=== PATIENT | male | born 1980 | race Caucasian/White ===

== ENCOUNTER → 2019-08-12 | Outpatient (CLI) | payer OTHER ==
[~2019-08-12] MED LIST: AUGMENTIN 875875 MG PO; NORCO 5-325 TA1 EACH PO; PREDNISONE
== END ==
LOC: MRI 08:26
DX: R16.2 Hepatomegaly with splenomegaly, not elsewhere classified (principal); K80.20 Calculus of gallbladder without cholecystitis without obstruction